=== PATIENT | female | born 1985 | race Caucasian/White ===

== ENCOUNTER 2017-01-11 18:09 | Emergency (ER) | payer SELFPAY ==
[2017-01-11] MEDS ORDERED: ALBUTEROL SULFATE 0.083% NEB 2.5 MG/3 ML AMPUL NEB ONE (19:32)
[2017-01-11] MEDS ORDERED: OXYCODONE-ACETAMINOPHEN 5-325 MG TABLET PO ONE (19:33)
--- NOTE | 2017-01-11 19:38 | ER Document Report ---
ED Respiratory Problem - General Chief Complaint: Cough Stated Complaint: WHEEZING/BACK & SIDE PAIN Time Seen by Provider: 01/11/17 19:26 Notes: 31 yo female c/o right chest wall pain, cough and cold s/s x 3 weeks. no relief with OTC meds. no fever. + smoker TRAVEL OUTSIDE OF THE [place] IN LAST 30 DAYS: No - HPI Patient complains to provider of: Cough, Hurts to breath Cough: Nonproductive Similar symptoms previously: No Recently seen / treated by doctor: No - Related Data Allergies/Adverse Reactions: Sulfa (Sulfonamide Antibiotics) Allergy (Verified 01/11/17 18:29) Past Medical History - General Information source: Patient - Social History Smoking Status: Current Every Day Smoker Chew tobacco use (# tins/day): No Frequency of alcohol use: Rare Drug Abuse: None Lives with: Family Family History: Reviewed & Not Pertinent - Past Medical History Cardiac Medical History: Reports: Hx Hypercholesterolemia Pulmonary Medical History: Reports: Hx Bronchitis Endocrine Medical History: Reports: Hx Diabetes Mellitus Type 2 - borderline Renal/ Medical History: Denies: Hx Peritoneal Dialysis Psychiatric Medical History: Reports: Hx Anxiety Past Surgical History: Reports: Hx Orthopedic Surgery - bilateral knees, Hx Tonsillectomy - Immunizations Immunizations up to date: No Hx Diphtheria, Pertussis, Tetanus Vaccination: Yes Review of Systems - Review of Systems Constitutional: No symptoms reported EENT: No symptoms reported Cardiovascular: No symptoms reported Respiratory: See HPI Gastrointestinal: No symptoms reported Genitourinary: No symptoms reported Female Genitourinary: No symptoms reported Musculoskeletal: No symptoms reported Skin: No symptoms reported Hematologic/Lymphatic: No symptoms reported Neurological/Psychological: No symptoms reported Physical Exam - Vital signs Vitals: Temp Pulse Resp BP Pulse Ox 97.9 F 93 18 120/70 98 01/11/17 18:30 01/11/17 18:30 01/11/17 18:30 01/11/17 18:30 01/11/17 18:30 Interpretation: Normal - General General appearance: Appears well, Alert - HEENT Head: Normocephalic, Atraumatic Eyes: Normal Conjunctiva: Normal Pupils: PERRL Tympanic membrane: Normal Mucous membranes: Moist Pharynx: Normal Neck: Normal - Respiratory Respiratory status: No respiratory distress Chest status: Tender - right posterio-lateral chest wall pain, + pleuritic pain Breath sounds: Decreased air movement - bilat bases, Nonproductive cough Chest palpation: Normal - Cardiovascular Rhythm: Regular Heart sounds: Normal auscultation Murmur: No - Abdominal Inspection: Normal Distension: No distension Bowel sounds: Normal Tenderness: Nontender Organomegaly: No organomegaly - Back Back: Normal, Nontender - Extremities General upper extremity: Normal inspection, Nontender, Normal color, Normal ROM , Normal temperature General lower extremity: Normal inspection, Nontender, Normal color, Normal ROM , Normal temperature, Normal weight bearing. No: Geremias's sign - Neurological Neuro grossly intact: Yes Cognition: Normal Orientation: AAOx4 [place] Coma Scale Eye Opening: Spontaneous Mallory Coma Scale Verbal: Oriented [place] Coma Scale Motor: Obeys Commands [place] Coma Scale Total: 15 Speech: Normal Motor strength normal: LUE, RUE, LLE, RLE Sensory: Normal - Psychological Associated symptoms: Normal affect, Normal mood - Skin Skin Temperature: Warm Skin Moisture: Dry Skin Color: Normal Course - Re-evaluation Re-evalutation: 01/11/17 20:23 chest xray is negative. results reviewed with patient. pt feeling better after nebulizer. will treat with oral steroids, bronchodilator and cough suppressant. pt is stable for discharge and agreeable with plan - Vital Signs Vital signs: Temp Pulse Resp BP Pulse Ox 97.9 F 93 18 120/70 98 01/11/17 18:30 01/11/17 18:30 01/11/17 18:30 01/11/17 18:30 01/11/17 18:30 Discharge - Discharge Clinical Impression: Bronchitis, Pleuritic chest pain Condition: Stable Disposition: HOME, SELF-CARE Instructions: Steroid Medication, Inhaled Bronchodilators ([facility]), Cough Suppressant & Expectorant Medications Additional Instructions: Your chest xray is negative for pneumonia today. I am treating your with oral steroids, bronchodilator and cough suppressant Take medications as prescribed Stop smoking Follow up with your primary care if symptoms persist Return to ER for any worsening Prescriptions: Albuterol Sulfate [Albuterol Sulfate 2.5mg/3 mL] 2.5 mg IH Q4H PRN #1 kit PRN Reason: ASTHMA Phenylephrine HCl/Cod/Prometh [Phenergan Vc-Codeine Syrup] 5 - 10 ml PO Q4H # 120 ml Prednisone [Deltasone 20 mg Tablet] 3 tab PO DAILY 5 Days
--- NOTE | 2017-01-11 20:16 | RADIOLOGY REPORT (SQ) ---
EXAM DESCRIPTION: CHEST PA/LAT COMPLETED DATE/TIME: 01/11/2017 7:57 pm REASON FOR STUDY: cough COMPARISON: January 2016 EXAM PARAMETERS: NUMBER OF VIEWS: two views TECHNIQUE: Digital Frontal and Lateral radiographic views of the chest acquired. RADIATION DOSE: NA LIMITATIONS: none FINDINGS: LUNGS AND PLEURA: No opacities, masses or pneumothorax. No pleural effusion. MEDIASTINUM AND HILAR STRUCTURES: No masses or contour abnormalities. HEART AND VASCULAR STRUCTURES: Heart normal size. No evidence for failure. BONES: No acute findings. HARDWARE: None in the chest. OTHER: No other significant finding. IMPRESSION: NO SIGNIFICANT RADIOGRAPHIC FINDING IN THE CHEST. TECHNICAL DOCUMENTATION: JOB ID: [id number] [employer]- All Rights Reserved
[2017-01-11 20:45] VITALS: BP 111/84
== END 2017-01-11 20:48 | disposition home or self-care (01) ==
LOC: ER 18:09
DX: J40 Bronchitis, not specified as acute or chronic (principal); R07.81 Pleurodynia; R05 Cough; F17.200 Nicotine dependence, unspecified, uncomplicated; Z88.2 Allergy status to sulfonamides
CPT/HCPCS: 71020; 94640; 99283

== ENCOUNTER 2017-04-08 16:23 | Emergency (ER) | payer SELFPAY ==
[2017-04-08 16:33] VITALS: BP 130/79
--- NOTE | 2017-04-08 17:25 | ER Document Report ---
HPI - HPI Pain Level: 5 - REPRODUCTIVE Reproductive: DENIES: : - DERM Skin Color: Normal Past Medical History - Social History Smoking Status: Unknown if Ever Smoked Family History: Reviewed & Not Pertinent - Past Medical History Cardiac Medical History: Reports: Hx Hypercholesterolemia Pulmonary Medical History: Reports: Hx Bronchitis Endocrine Medical History: Reports: Hx Diabetes Mellitus Type 2 - borderline Renal/ Medical History: Denies: Hx Peritoneal Dialysis Psychiatric Medical History: Reports: Hx Anxiety Past Surgical History: Reports: Hx Orthopedic Surgery - bilateral knees, Hx Tonsillectomy - Immunizations Immunizations up to date: No Hx Diphtheria, Pertussis, Tetanus Vaccination: Yes - 2011 Vertical Provider Document - CONSTITUTIONAL Agree With Documented VS: Yes Exam Limitations: No Limitations General Appearance: No Apparent Distress - INFECTION CONTROL TRAVEL OUTSIDE OF THE [place] IN LAST 30 DAYS: No - HEENT HEENT: Normocephalic - NECK Neck: Supple - RESPIRATORY O2 Sat by Pulse Oximetry: 99 - MUSCULOSKELETAL/EXTREMETIES Musculoskeletal/Extremeties: MAEW, FROM - NEURO Level of Consciousness: Awake, Alert, Appropriate Motor/Sensory: No Motor Deficit, No Sensory Deficit - DERM Integumentary: Laceration - see wound repair notes, the 1.5 cm partial and full thickness vertical cut dorsal right hand between the 2nd and 3rd MCP's Course - Vital Signs Vital signs: Temp Pulse Resp BP Pulse Ox 98.3 F 93 20 130/79 H 99 04/08/17 16:32 04/08/17 16:32 04/08/17 16:32 04/08/17 16:32 04/08/17 16:32 Procedures - Laceration/Wound Repair Right Hand Time completed: 18:30 Wound length (cm): 1.5 - partial (7mm) and full thickness area (5mm) Wound's Depth, Shape: Linear Laceration pre-procedure: Sterile drapes applied Anesthetic type: 1% Lidocaine Volume Anesthetic (mLs): 4 Wound explored: Clean Wound Repaired With: Sutures Suture Size/Type: 4:0, Prolene Number of Sutures: 2 Layer Closure?: No Post-procedure wound care: Sterile dressing applied - bacitracin Post-procedure NV exam normal: Yes Complications: No Discharge - Discharge Clinical Impression: right hand cut repair Condition: Good Disposition: HOME, SELF-CARE Instructions: Acetaminophen, Hand Laceration ([facility]), Use of [id number] Ibuprofen ([facility]), Laceration Care ([facility]), Stop Smoking ([facility]) Additional Instructions: keep clean and dry, covered for 2 days, inspect wound eacj tanmay sutures out in 9 days use bacitracin x 2 days return to the ER if increased pain, reddness, swelling, infection Please complete the patient satisfaction survey if you get one, and return it.. If you do not receive a survey, then you can go to the [facility] website, [email or web address] and place your comments about your very good care. Thank you very much. It was a pleasure being your medical provider today.
[2017-04-08] MEDS ORDERED: LIDOCAINE 1% INJ-PF (10 MG/ML) 30 ML SDV INJ ONE (17:34)
[2017-04-08] MEDS ORDERED: IBUPROFEN 800 MG TABLET PO ONE (17:34)
[2017-04-08] MEDS ORDERED: LIDOCAINE 4%/TETRACAINE 0.5%/EPI 0.18% 5 ML TOPICAL SOLN TOP ONE (17:35)
[2017-04-08] MEDS ORDERED: DIPH/PERTUSS(ACELL)/TETANUS VAC/PF 0.5 ML SYR (>=10YO) IM ONE (18:03)
== END 2017-04-08 19:07 | disposition home or self-care (01) ==
LOC: ER 16:23
PROC: 0HQFXZZ Repair Right Hand Skin, External Approach (ICD-10-PCS; principal; 2017-04-08)
DX: S61.219A Laceration without foreign body of unspecified finger without damage to nail, initial encounter (principal); W45.8XXA Other foreign body or object entering through skin, initial encounter
CPT/HCPCS: 99282; 90471; 90715; 12001; J3490 ×2

== ENCOUNTER 2017-05-14 15:00 | Emergency (ER) | payer SELFPAY ==
[2017-05-14 15:29] VITALS: BP 130/75
[2017-05-14] MEDS ORDERED: PSEUDOEPHEDRINE HCL 30 MG TABLET PO ONE (16:31)
[2017-05-14] MEDS ORDERED: GUAIFENESIN 600 MG TABLET.SA PO ONE (16:31)
[2017-05-14] MEDS ORDERED: LORATADINE 10 MG TABLET PO ONE (16:31)
[2017-05-14] MEDS ORDERED: IBUPROFEN 600 MG TABLET PO ONE (16:31)
--- NOTE | 2017-05-14 16:38 | ER Document Report ---
ED Flu Like - General Chief Complaint: Sore Throat Stated Complaint: SORE THROAT Time Seen by Provider: 05/14/17 16:04 Mode of Arrival: Ambulatory Information source: Patient Notes: 31-year-old female presents to ED for cough congestion sore throat 1 week. She states her fever was 101.7 on and Monday but is down today and she came into the emergency room her temperature was 98.6. She states she has tried different combination medications and nothing is helped her. TRAVEL OUTSIDE OF THE [place] IN LAST 30 DAYS: No - HPI Onset: Last week Timing/Duration: Intermittent Quality of pain: Achy, Sharp Severity: Moderate Pain Level: 4 Associated symptoms: Body/muscle aches, Chills, Earache, Fever, Nausea, Rhinnorhea, Sinus pain/drainage, Shortness of breath Similar symptoms previously: Yes Recently seen / treated by doctor: No - Related Data Allergies/Adverse Reactions: Sulfa (Sulfonamide Antibiotics) Allergy (Verified 05/14/17 15:27) Past Medical History - General Information source: Patient - Social History Smoking Status: Former Smoker Cigarette use (# per day): No Chew tobacco use (# tins/day): No Smoking Education Provided: No Frequency of alcohol use: None Drug Abuse: None 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 Lives with: Family Family History: Reviewed & Not Pertinent Patient has suicidal ideation: No Patient has homicidal ideation: No - Past Medical History Cardiac Medical History: Reports: Hx Hypercholesterolemia Pulmonary Medical History: Reports: Hx Bronchitis Neurological Medical History: Reports: None Endocrine Medical History: Reports: Hx Diabetes Mellitus Type 2 - borderline Renal/ Medical History: Reports: None Malignancy Medical History: Reports: None GI Medical History: Reports: None Musculoskeltal Medical History: Reports Hx Musculoskeletal Deformity, Reports Hx Musculoskeletal Trauma Skin Medical History: Reports None Psychiatric Medical History: Reports: Hx Anxiety Traumatic Medical History: Reports: None Infectious Medical History: Reports: None Past Surgical History: Reports: Hx Orthopedic Surgery - bilateral knees, Hx Tonsillectomy - Immunizations Immunizations up to date: No Hx Diphtheria, Pertussis, Tetanus Vaccination: Yes - 2011 Review of Systems - Review of Systems Constitutional: Chills, Fever, Recent illness EENT: Ear pain, Nose discharge, Sinus discharge, Throat pain Cardiovascular: No symptoms reported Respiratory: Cough Gastrointestinal: No symptoms reported Genitourinary: No symptoms reported Female Genitourinary: No symptoms reported Musculoskeletal: No symptoms reported Skin: No symptoms reported Hematologic/Lymphatic: No symptoms reported Neurological/Psychological: No symptoms reported -: Yes All other systems reviewed and negative Physical Exam - Vital signs Vitals: Temp Pulse Resp BP Pulse Ox 98.6 F 92 16 130/75 H 97 05/14/17 15:27 05/14/17 15:27 05/14/17 15:27 05/14/17 15:27 05/14/17 15:27 Interpretation: Normal - General General appearance: Appears well, Alert - HEENT Head: Normocephalic, Atraumatic Eyes: Normal Pupils: PERRL Ears: Normal External canal: Normal Tympanic membrane: Normal Sinus: Normal Nasal: Purulent discharge, Swelling Mouth/Lips: Normal Pharynx: Post nasal drainage. No: Erythema, Exudate, Tonsillar hypertrophy Neck: Normal - Respiratory Respiratory status: No respiratory distress Chest status: Nontender Breath sounds: Normal, Nonproductive cough Chest palpation: Normal - Cardiovascular Rhythm: Regular Heart sounds: Normal auscultation Murmur: No - Abdominal Inspection: Normal Distension: No distension Bowel sounds: Normal Tenderness: Nontender Organomegaly: No organomegaly - Back Back: Normal, Nontender - Extremities General upper extremity: Normal inspection, Nontender, Normal color, Normal ROM , Normal temperature General lower extremity: Normal inspection, Nontender, Normal color, Normal ROM , Normal temperature, Normal weight bearing. No: Geremias's sign - Neurological Neuro grossly intact: Yes Cognition: Normal Orientation: AAOx4 [place] Coma Scale Eye Opening: Spontaneous [place] Coma Scale Verbal: Oriented [place] Coma Scale Motor: Obeys Commands [place] Coma Scale Total: 15 Speech: Normal Motor strength normal: LUE, RUE, LLE, RLE Sensory: Normal - Psychological Associated symptoms: Normal affect, Normal mood - Skin Skin Temperature: Warm Skin Moisture: Dry Skin Color: Normal Course - Re-evaluation Re-evalutation: 05/14/17 21:55 Assessment was consistent with upper respiratory infection with viral sore throat no signs or symptoms of strep throat. Patient was discharged home with instructions for care of upper respiratory infection and instructions to follow- up with her primary doctor. - Vital Signs Vital signs: Temp Pulse Resp BP Pulse Ox 98.6 F 92 16 130/75 H 97 05/14/17 15:27 05/14/17 15:27 05/14/17 15:27 05/14/17 15:27 05/14/17 15:27 Discharge - Discharge Clinical Impression: Sore throat (viral) URI (upper respiratory infection) Qualifiers: URI type: unspecified URI Qualified Code(s): J06.9 - Acute upper respiratory infection, unspecified Condition: Stable Disposition: HOME, SELF-CARE Instructions: Family Physicians / Practices Additional Instructions: UPPER RESPIRATORY ILLNESS: You have a viral infection of the respiratory passages -- a "cold." This common infection causes nasal congestion, drainage, and often sore throat and cough. It is highly contagious. The disease usually lasts about 10 to 14 days. There is no "cure" for the viral infection -- it must run its course. If there is a complication, such as bacterial infection in the nose, sinuses, middle ear, or bronchial tubes, antibiotics may be required. The antibiotics won't affect the virus. Drink plenty of fluids. A humidifier may help. An expectorant medication or decongestant may make you more comfortable. Use acetaminophen or ibuprofen for fever or aches. See the doctor if fever persists over two days, if there is any significant worsening of your symptoms, or if you simply fail to improve as expected. SORE THROAT: Sore throats may be caused by viruses, bacteria, or fungi. Most are due to a virus, and must get better on their own. Bacterial sore throats, particularly those due to "strep," need treatment with antibiotics. If an antibiotic is prescribed, be sure to take the medication for a full 10 days. Failure to take the antibiotic can result in complications such as rheumatic fever. Sometimes, an injection of antibiotics is given instead of pills or liquid. This single "shot" is equal in effectiveness to the oral medication. To relieve symptoms, take acetaminophen for pain. Sip clear liquids frequently, or eat popsicles or ice chips. Anesthetic sprays or lozenges may help. Make sure the air in the room is not too dry. Avoid using decongestants or antihistamines. Call the doctor if there is no improvement in two days, or if you have difficulty breathing, increasing throat pain, high fever, rash, or frequent vomiting. DECONGESTANT MEDICATION: A decongestant medicine has been prescribed. Often this medicine is combined in the same tablet with an antihistamine or expectorant. This type of medicine is helpful in treating a bad cold or sinus condition, as well as in treatment of the nasal congestion of hay fever. It is not of much benefit for lung infections. Decongestant medicines are related to stimulants. They can cause an increase in blood pressure and heart rate. Persons with heart disease and high blood pressure should not take decongestants without discussing this with the physician. If you develop palpitations, chest pain, headache, or tremors, stop the medicine and consult your physician. COUGH-SUPPRESSANT & EXPECTORANT MEDICATION: You are to use a cough medication as needed for relief of symptoms. This medicine is a combination of an expectorant (to make the mucous thinner and more easily "coughed up") and a cough suppressant (to reduce the frequency of coughing). The cough-suppressant medicine is related to narcotics. You may experience mild nausea and sleepiness. Some patients who are very sensitive to narcotics may have stomach pain from this medicine. Taking the medicine with food reduces these side effects. Do not drive or work with machinery until you know how this medicine affects you. The expectorant should have no side effects. Iodine-containing expectorants (such as organidin) should not be taken by persons with active thyroid disease unless approved by your doctor. Call the doctor if you develop shortness of breath, hives, rash, itching, lightheadedness, or severe nausea and vomiting. USE OF ACETAMINOPHEN (Tylenol): Acetaminophen may be taken for pain relief or fever control. It's much safer than aspirin, offering a wider range of "safe" dosages. It is safe during . Some brand names are Tylenol, Panadol, Datril, Anacin 3, Tempra, and Liquiprin. Acetaminophen can be repeated every four hours. The following are maximum recommended dosages: >89 pounds or adults 650 mg to 900 mg Acetaminophen can be repeated every four hours. Maximum dose not to exceed 4000 mg a day. FOLLOW-UP CARE: If you have been referred to a physician for follow-up care, call the physician s office for an appointment as you were instructed or within the next two days. If you experience worsening or a significant change in your symptoms, notify the physician immediately or return to the Emergency Department at any time for re-evaluation. Forms: Elevated Blood Pressure, Return to Work
== END 2017-05-14 16:44 | disposition home or self-care (01) ==
LOC: ER 15:00
DX: J06.9 Acute upper respiratory infection, unspecified (principal); J02.9 Acute pharyngitis, unspecified; R05 Cough; R09.81 Nasal congestion; R50.9 Fever, unspecified; Z87.891 Personal history of nicotine dependence
CPT/HCPCS: 99282

== ENCOUNTER 2018-05-09 14:19 | Emergency (ER) | payer SELFPAY ==
[2018-05-09 14:25] VITALS: BP 128/73
[2018-05-09] MEDS ORDERED: LIDOCAINE 1% INJ-PF (10 MG/ML) 30 ML SDV INJ ONE (15:35)
[2018-05-09] MEDS ORDERED: AZITHROMYCIN 250 MG TABLET PO ONE (15:35)
[2018-05-09] MEDS ORDERED: CEFTRIAXONE INJ 250 MG VIAL IM ONE (15:35)
[2018-05-09] MEDS ORDERED: ALBUTEROL SULFATE HFA (90 MCG/PUFF) 8 GM MDI (1 MDI/ER DISP) IH ONE (15:49)
--- NOTE | 2018-05-09 15:55 | ER Document Report ---
HPI - HPI Time Seen by Provider: 05/09/18 15:22 Pain Level: 1 Notes: Patient is a 32-year-old female with a history of former smoking who presents to the ED complaining of right anterior distal index finger pain and possible infection times 5 days. 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 Patient states that after a few days she started noticing redness and some swelling. Patient states that she did get a small amount of purulent material from it and has been trying to keep it open since then. She has not noticed any streaking or worsening swelling/pain since its onset. Patient also states that she has had nasal congestion/discharge and an occasional dry nonproductive cough with some wheezing over the last 5 days as well. Patient states that she is still able to eat and drink without any difficulties. She is urinating normally. She is performing her ADLs without difficulties. Pt requesting a steroid shot and inhaler. No other concerns or complaints. Patient does not have insurance. Denies any headache, fever, neck pain, sore throat, chest pain, palpitations, syncope, shortness of breath, dyspnea, abdominal pain, nausea/vomiting/diarrhea, urinary retention, dysuria, hematuria, numbness/tingling, muscle paralysis/weakness. - ROS Systems Reviewed and Negative: Yes All other systems reviewed and negative - CONSTITUTIONAL Constitutional: DENIES: Fever, Chills - EENT EENT: DENIES: Sore Throat, Ear Pain, Eye problems - NEURO Neurology: DENIES: Headache, Weakness, Vision blurred, Dizzinesss / Vertigo - CARDIOVASCULAR Cardiovascular: DENIES: Chest pain - RESPIRATORY Respiratory: REPORTS: Trouble Breathing - wheezing, Coughing - GASTROINTESTINAL Gastrointestinal: DENIES: Abdominal Pain, Black / Bloody Stools - URINARY Urinary: DENIES: Dysuria, Urgency, Frequency - REPRODUCTIVE Reproductive: DENIES: : - MUSCULOSKELETAL Musculoskeletal: REPORTS: Extremity pain - R index finger Past Medical History - Social History Smoking Status: Unknown if Ever Smoked Family History: Reviewed & Not Pertinent Patient has suicidal ideation: No Patient has homicidal ideation: No - Past Medical History Cardiac Medical History: Reports: Hx Hypercholesterolemia Pulmonary Medical History: Reports: Hx Bronchitis Endocrine Medical History: Reports: Hx Diabetes Mellitus Type 2 - borderline Renal/ Medical History: Denies: Hx Peritoneal Dialysis Musculoskeletal Medical History: Reports Hx Musculoskeletal Deformity, Reports Hx Musculoskeletal Trauma Psychiatric Medical History: Reports: Hx Anxiety Past Surgical History: Reports: Hx Orthopedic Surgery - bilateral knees, Hx Tonsillectomy - Immunizations Immunizations up to date: No Hx Diphtheria, Pertussis, Tetanus Vaccination: Yes - 2011 [facility] Provider Document - CONSTITUTIONAL Agree With Documented VS: Yes Notes: PHYSICAL EXAMINATION: GENERAL: Well-appearing, well-nourished and in no acute distress. A&Ox4. Answers questions appropriately. Moves comfortably w/o notable distress HEAD: Atraumatic, normocephalic. EYES: Pupils equal round and reactive to light, extraocular movements intact, sclera anicteric, conjunctiva are normal. ENT: Nares patent and with clear discharge. oropharynx no erythema without exudates. No tonsilar hypertrophy without erythema or exudate. No palatine shift. Uvula midline. No tongue protrusion. No drooling, hoarseness, or airway compromise. Moist mucous membranes. No sinus tenderness. NECK: Normal range of motion, supple without lymphadenopathy. No rigidity/ meningismus. LUNGS: Very scant wheeze LLL w/o crackles or rhonchi. No retractions HEART: Regular rate and rhythm without murmurs, rubs, gallops. ABDOMEN: Soft, nontender, nondistended abdomen. No guarding, no rebound. No masses appreciated. Normal bowel sounds present. No CVA tenderness bilaterally. No hepatosplenomegaly. NEUROLOGICAL: Normal speech, normal gait. Normal sensory, motor exams PSYCH: Normal mood, normal affect. SKIN: Rt distal anterior index finger: there is a very small 0.3mm that is mildy erythemic w/o fluctuance. + minimal induration, + tenderness. No streaks. No felon. - INFECTION CONTROL TRAVEL OUTSIDE OF THE [place] IN LAST 30 DAYS: No Course - Re-evaluation Re-evalutation: 05/09/18 15:55 Patient is an afebrile, well-hydrated, 32-year-old female who presents to the ED with an acute URI, suspect viral, and distal finger infection which I suspect very mild at this time. Vitals are acceptable without significant tachycardia, tachypnea, or hypoxia. PE is otherwise unremarkable aside from what was noted. Patient was given Decadron and an inhaler. Puncture incision and drainage performed with an 18-gauge needle to the finger to assess for any evidence of abscess, but only blood was obtained. Wound dressing was placed and wound instructions reviewed. Wound culture also obtained. No further labs or imaging warranted at this time. Patient has not had any shortness of breath , dyspnea, or chest pain. She is nontoxic-appearing and is tolerating p.o. without difficulty. Low suspicion for any sepsis, meningitis, severe dehydration, respiratory compromise, or other systemic emergent condition at this time. Patient is aware that condition can change from initial presentation and she needs to monitor symptoms closely and seek medical attention with any acute changes. I will send her home with a prescription for Keflex. She has no history of MRSA. Recheck with your PCM in 2-3 days. Return to the ED with any worsening/concerning symptoms otherwise as reviewed discharge. Patient is in agreement. - Vital Signs Vital signs: Temp Pulse Resp BP Pulse Ox 98.5 F 98 16 128/73 H 97 05/09/18 14:24 05/09/18 14:24 05/09/18 14:24 05/09/18 14:24 05/09/18 14:24 Discharge - Discharge Clinical Impression: Acute URI, Finger infection Condition: Stable Disposition: HOME, SELF-CARE Instructions: Cephalexin ([facility]), Upper Respiratory Illness ([facility]) Additional Instructions: Keep the skin clean Wash with soap and water Tylenol/ibuprofen if needed Triple antibiotic ointment daily [id number] medications as needed for URI symptoms Wash hands and wear a mask if coughing Humidified air may help Take medication as directed Monitor for any worsening symptoms Recheck with your PCM in 2-3 days Return to the ED with any worsening symptoms and/or development of fever, headache, chest pain, palpitations, syncope, shortness of breath, trouble breathing, abdominal pain, n/v/d, abscess, purulent discharge, red streaks, worsening swelling, or other worsening symptoms that are concerning to you. Prescriptions: Cephalexin Monohydrate [Keflex 500 mg Capsule] 500 mg PO TID #21 capsule Forms: Elevated Blood Pressure Referrals: [facility] [Provider Group] - Follow up as needed
== END 2018-05-09 16:24 | disposition home or self-care (01) ==
LOC: ER 14:19
DX: L08.9 Local infection of the skin and subcutaneous tissue, unspecified (principal); J06.9 Acute upper respiratory infection, unspecified; M79.644 Pain in right finger(s); R09.81 Nasal congestion; R05 Cough; R06.2 Wheezing; Z87.891 Personal history of nicotine dependence
CPT/HCPCS: 99283; 87070; 87205; 87075; 87077; 10060; J3490

== ENCOUNTER 2018-07-16 21:38 | Emergency (ER) | payer SELFPAY | END 2018-07-16 22:00 | disposition left against medical advice (07) | LOC: ER 21:38 | DX: Z53.21 Procedure and treatment not carried out due to patient leaving prior to being seen by health care provider (principal) ==

== ENCOUNTER 2018-07-21 05:39 | Emergency (ER) | payer SELFPAY ==
--- NOTE | 2018-07-21 06:18 | RADIOLOGY REPORT (SQ) ---
CLINICAL HISTORY: fall COMPARISON: None. 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 Joint spaces are preserved. Soft tissues are unremarkable. IMPRESSION: No acute osseous findings.
--- NOTE | 2018-07-21 08:43 | ER Document Report ---
HPI - HPI Patient complains to provider of: shoulder injury Time Seen by Provider: 07/21/18 08:23 Pain Level: 5 Context: 32-year-old female with no past medical history presents emergency department after falling in her shower last Monday and hitting her right shoulder. She said that her fall was partially broken by her left arm which slowed her down within it was a direct injury to her right shoulder. She is able to move the extremity to about 90 degrees flexion and 90 degrees abduction. There she denies any fevers, chills, nausea, vomiting. She denies any injury to the distal joints. No other complaints. - CONSTITUTIONAL Constitutional: DENIES: Fever, Chills - REPRODUCTIVE Reproductive: DENIES: : Past Medical History - Social History Smoking Status: Unknown if Ever Smoked Family History: Reviewed & Not Pertinent Patient has suicidal ideation: No Patient has homicidal ideation: No - Past Medical History Cardiac Medical History: Reports: Hx Hypercholesterolemia Pulmonary Medical History: Reports: Hx Bronchitis Endocrine Medical History: Reports: Hx Diabetes Mellitus Type 2 - borderline Renal/ Medical History: Denies: Hx Peritoneal Dialysis Musculoskeletal Medical History: Reports Hx Musculoskeletal Deformity, Reports Hx Musculoskeletal Trauma Psychiatric Medical History: Reports: Hx Anxiety Past Surgical History: Reports: Hx Orthopedic Surgery - bilateral knees, Hx Tonsillectomy - Immunizations Immunizations up to date: No Hx Diphtheria, Pertussis, Tetanus Vaccination: Yes - 2011 [facility] Provider Document - CONSTITUTIONAL Notes: PHYSICAL EXAMINATION: Reviewed vital signs and charting by RN GENERAL: Alert, interacts well. No acute distress. HEAD: Normocephalic, atraumatic. EYES: Pupils equal, round. Extraocular movements intact. ENT: Oral mucosa moist. NECK: Full range of motion. Supple. Trachea midline. EXTREMITIES: Moves all 4 extremities spontaneously. No edema, No cyanosis. Acute tenderness to palpation over the distal head of the right deltoid. She does have tenderness to palpation over the right AC joint. No erythema, no edema, no ecchymosis. Passive range of motion shoulder flexion to 75 degrees, passive range of motion to abduction 90 degrees, passive range of motion deltoid extension 15 degrees. Active range of motion with flexion and abduction to 90 degrees. Tenderness when palpating in the bicipital groove. BACK: no cervical, thoracic, lumbar midline tenderness. No saddle anesthesia, normal distal neurovascular exam. NEUROLOGICAL: Alert and oriented x3. Normal speech. PSYCH: Normal affect, normal mood. SKIN: Warm, dry, normal turgor. No rashes or lesions noted. - INFECTION CONTROL TRAVEL OUTSIDE OF THE [place] IN LAST 30 DAYS: No Course - Re-evaluation Re-evalutation: 07/21/18 08:41 Well-appearing 32-year-old female presents after a fall 7 days ago. Shoulder x- ray of right shoulder reveals no fracture, dislocation, bony lesions. Patient is tender to palpation over the posterior deltoid head and surrounding soft tissue. No evidence of erythema, patient is able to move the joint so I have low suspicion for septic joint. Her right elbow and wrist show no evidence of injury and she has full strength and range of motion in those joints. Discussed with patient that this is most likely a soft tissue injury that could be referred to orthopedics. She says she does not have insurance and will "probably have to wait until October ". I told her we could place a lidocaine patch and gave her instructions for taking Motrin and Tylenol. Plan is to offer her a sling that she can use while resting and gave her some basic exercises for physical therapy prior to going to orthopedics. Patient is stable for discharge. - Vital Signs Vital signs: Temp Pulse Resp BP Pulse Ox 98.2 F 117 H 16 135/85 H 96 07/21/18 05:45 07/21/18 05:45 07/21/18 05:45 07/21/18 05:45 07/21/18 05:45 Discharge - Discharge Clinical Impression: Right shoulder injury Qualifiers: Encounter type: initial encounter Qualified Code(s): S49.91XA - Unspecified injury of right shoulder and upper arm, initial encounter Condition: Good Disposition: HOME, SELF-CARE Additional Instructions: You are seen in the emergency department this morning for a right shoulder injury. The x-ray showed no fracture or dislocation which is very reassuring. You most likely sustained a soft tissue or muscle injury. We have given you a referral to orthopedics even though I know you do not have insurance. It is still worthwhile to give him a call to see if they can offer you any services at a reasonable cost. We have also provided you a sling that you can use while resting. It is important though to maintain some range of motion as you could develop with called a frozen shoulder if you do not use the shoulder. Please continue to do those small arm circles and gradually increase the size and which is when your arm and the other exercise or you walk your fingers of the wall. This will help maintain your range of motion. If your shoulder becomes red and hot, you develop fever, you are unable to move her shoulder at all please immediately return to the emergency department as this is concerning for a septic joint. If you have any other concerns please immediately return to the emergency department. [facility] - Follow up as needed MUMTAZ MUSA MD [ACTIVE STAFF] - Follow up as needed
[2018-07-21] MEDS ORDERED: LIDOCAINE 5% (700 MG) TRANSDERMAL ADH..PATCH TP ONE (08:45)
[2018-07-21 08:57] VITALS: BP 121/76
== END 2018-07-21 08:57 | disposition home or self-care (01) ==
LOC: ER 05:39
DX: S49.91XA Unspecified injury of right shoulder and upper arm, initial encounter (principal); W18.2XXA Fall in (into) shower or empty bathtub, initial encounter
CPT/HCPCS: 99283

== ENCOUNTER 2019-05-29 11:42 | Emergency (ER) | payer OTHER ==
[2019-05-29 12:40] VITALS: BP 133/63
--- NOTE | 2019-05-29 12:46 | ER Document Report ---
HPI - HPI Time Seen by Provider: 05/29/19 12:35 Pain Level: Denies Notes: Otherwise healthy 33-year-old female presented emergency department chief complaint of rash to her right inner upper arm. She states that the other day she dropped an item which caused a bruise to the area and then she broke out in a red rash around it. Patient reports there is some pruritus to the area. Denies any fevers or any other symptoms. - REPRODUCTIVE Reproductive: DENIES: : Past Medical History - General Information source: Patient - Social History Smoking Status: Current Every Day Smoker Chew tobacco use (# tins/day): No Frequency of alcohol use: Rare Drug Abuse: None Family History: Reviewed & Not Pertinent Patient has suicidal ideation: No Patient has homicidal ideation: No - Past Medical History Cardiac Medical History: Reports: Hx Hypercholesterolemia Pulmonary Medical History: Reports: Hx Bronchitis Endocrine Medical History: Reports: Hx Diabetes Mellitus Type 2 - borderline Renal/ Medical History: Denies: Hx Peritoneal Dialysis Musculoskeletal Medical History: Reports Hx Musculoskeletal Deformity, Reports Hx Musculoskeletal Trauma Psychiatric Medical History: Reports: Hx Anxiety Past Surgical History: Reports: Hx Orthopedic Surgery - bilateral knees, Hx Tonsillectomy - Immunizations Immunizations up to date: No Hx Diphtheria, Pertussis, Tetanus Vaccination: Yes - 2011 [facility] Provider Document - CONSTITUTIONAL Notes: PHYSICAL EXAMINATION: GENERAL: Well-appearing, well-nourished and in no acute distress. HEAD: Atraumatic, normocephalic. EYES: Pupils equal round extraocular movements intact, conjunctiva are normal. ENT: Nares patent NECK: Normal range of motion LUNGS: No respiratory distress Musculoskeletal: Normal range of motion NEUROLOGICAL: Normal speech, normal gait. PSYCH: Normal mood, normal affect. SKIN: Ecchymosis noted to right upper arm, this was marked with a surgical marker. Surrounding erythema also marked with a surgical marker. Mildly indurated but without any fluctuance. - INFECTION CONTROL TRAVEL OUTSIDE OF THE [place] IN LAST 30 DAYS: No Course - Re-evaluation Re-evalutation: Patient has what appears to be a bruise to her upper arm as well as mild early cellulitis. She will be started on cephalexin and encouraged to follow-up with primary care if not improving. Patient verbalized understanding and agreement with this plan. The patient's emergency department workup and current diagnosis were explained to the patient and or family. Follow-up instructions were provided. Medications if prescribed were discussed. Instructions for when to return to the emergency department including specific worrisome symptoms were discussed with the patient and/or family. - Vital Signs Vital signs: Temp Pulse Resp BP Pulse Ox 98.8 F 84 16 137/79 H 98 05/29/19 11:59 12 11:59 12 11:59 12 11:59 05/29/19 11:59 Discharge - Discharge Clinical Impression: Skin rash Condition: Stable Disposition: HOME, SELF-CARE Additional Instructions: The rash is likely due to infection of your skin. You need to take the antibiotics as prescribed. Do not stop even if the rash goes away until you have completed all the antibiotics. The area of redness was traced out here in the emergency department with a marking pen. You need to return to emergency department if the redness spreads outside of this area by more than 2 cm in any direction. You should also return if you develop fevers with temperature greater than 101, persistent vomiting, worsening pain, or have any other symptoms that are concerning to you. Prescriptions: Cephalexin [Keflex] 500 mg PO BID #10 capsule Prednisone 10 mg PO ASDIR PRN #21 tablet PRN Reason: [facility] - Follow up as needed
== END 2019-05-29 13:02 | disposition home or self-care (01) ==
LOC: ER 11:42
DX: R21 Rash and other nonspecific skin eruption (principal); F17.200 Nicotine dependence, unspecified, uncomplicated; E78.00 Pure hypercholesterolemia, unspecified; R73.03 Prediabetes
CPT/HCPCS: 99282